=== PATIENT | female | born 1960 | race Caucasian/White ===

== ENCOUNTER 2021-11-09 15:39 | Emergency (ER) | payer OTHER ==
--- NOTE | 2021-11-09 21:41 | EDPHYS ---
Physician Documentation [facility] Name: Christen Hendricks Age: 61 yrs Sex: Female : 1960 Arrival Date: 11/09/2021 Time: 15:43 Bed Waiting Private MD: Fabian Pascual HPI: 11/09 18:00 This 61 yrs old Female presents to ER via Ambulatory with complaints of Abscess. cp 18:00 The patient presents with an abscess of the suprapubic area. Description: pain. cp Historical: - Allergies: 16:07 Clindamycin; vg1 - PMHx: 16:07 Diabetes mellitus; Hypertensive disorder; vg1 - PSHx: 16:07 None; vg1 - Immunization history:: Client reports having NOT received the Covid vaccine. - Social history:: Smoking status: Patient denies any tobacco usage or history of. ROS: 18:02 Constitutional: Negative for body aches, chills, fever, poor PO intake. cp 18:02 Cardiovascular: Negative for chest pain. cp 18:02 Respiratory: Negative for cough, shortness of breath. 18:02 Abdomen/GI: Positive for abdominal pain, of the suprapubic area, Negative for vomiting, diarrhea, constipation. 18:02 : Negative for urinary symptoms. 18:02 Neuro: Negative for altered mental status, dizziness, headache, weakness. 18:02 All other systems are negative. Exam: 18:05 Head/Face: Normocephalic, atraumatic. cp 18:05 Constitutional: The patient appears in no acute distress, alert, awake, non-diaphoretic, non-toxic, well developed, well nourished, obese, uncomfortable. 18:05 Eyes: Periorbital structures: appear normal, Conjunctiva: normal, no exudate, no injection, Lids and lashes: appear normal, bilaterally. 18:05 ENT: External ear(s): are unremarkable, Nose: is normal, Mouth: Lips: moist, Oral mucosa: moist, Posterior pharynx: Airway: no evidence of obstruction, patent. 18:05 Cardiovascular: Rate: tachycardic. 18:05 Respiratory: the patient does not display signs of respiratory distress, Respirations: normal, no use of accessory muscles, no retractions, labored breathing, is not present. 18:05 Abdomen/GI: Exam negative for distension, guarding, Inspection: obese 18:05 Neuro: Orientation: to person, place \T\ time. Mentation: is normal. Vital Signs: 16:03 BP 99 / 57; Pulse 103; Resp 20; Temp 98.7(O); Pulse Ox 99% on R/A; Weight 133.81 kg; vg1 Height 5 ft. 8 in. (172.72 cm); Pain 4/10; 16:03 Body Mass Index 44.85 (133.81 kg, 172.72 cm) vg1 Administered Medications: No medications were administered Disposition Summary: 11/09/21 21:40 Eloped Disposition: before being seen by provider bb Reason: wait time bb Signatures: Debbi Mo RN RN bb Fabian Liu PA PA cp Garcia, Victoria, RN RN vg1
--- NOTE | 2021-11-09 21:41 | ER ---
Nurse's Notes [facility] Name: Christen Hendricks Age: 61 yrs Sex: Female : 1960 Arrival Date: 11/09/2021 Time: 15:43 Bed Waiting Private MD: Diagnosis: Presentation: 11/09 16:03 Chief complaint: Patient states: abscess near suprapubic area that is 'sore and vg1 tender'; states saw a doctor in [place] and was prescribed antibiotics. pt states feels tired and loss of appetite and feeling nauseated. Coronavirus screen: Vaccine status: Patient reports being unvaccinated. Client denies travel out of the [place] in the last 14 days. Ebola Screen: Patient denies exposure to infectious person. Patient denies travel to an Ebola-affected area in the 21 days before illness onset. Initial Sepsis Screen: Does the patient meet any 2 criteria? HR > 90 bpm. Yes Does the patient have a suspected source of infection? No. Patient's initial sepsis screen is negative. Risk Assessment: Do you want to hurt yourself or someone else? Patient reports no desire to harm self or others. Onset of symptoms was November 06, 2021. 16:03 Method Of Arrival: Ambulatory 1 16:03 Acuity: SILVER 3 vg1 Triage Assessment: 16:07 General: Appears uncomfortable, Behavior is cooperative. Pain: Complains of pain in vg1 groin and suprapubic area. Historical: - Allergies: 16:07 Clindamycin; vg1 - PMHx: 16:07 Diabetes mellitus; Hypertensive disorder; vg1 - PSHx: 16:07 None; vg1 - Immunization history:: Client reports having NOT received the Covid vaccine. - Social history:: Smoking status: Patient denies any tobacco usage or history of. Vital Signs: 16:03 BP 99 / 57; Pulse 103; Resp 20; Temp 98.7(O); Pulse Ox 99% on R/A; Weight 133.81 kg; vg1 Height 5 ft. 8 in. (172.72 cm); Pain 4/10; 16:03 Body Mass Index 44.85 (133.81 kg, 172.72 cm) 1 ED Course: 15:43 Patient arrived in ED. [id number] 15:47 Fabian Liu PA is PHCP. cp 15:47 Fabian Vo MD is Attending Physician. cp 16:07 Triage completed. vg1 16:07 Arm band placed on. vg1 21:40 Patient's name was called from ER lobby. No response. Unable to locate patient. Will bb disposition as left without being seen by a provider. Administered Medications: No medications were administered Outcome: 21:40 Patient left the ED. bb Signatures: Debbi Mo RN RN bb Fabian Liu PA PA cp Garcia, Victoria, RN RN vg1 Angelina Rosas [id number]
[2021-11-09 21:55] VITALS: BP 99/57; TEMP 98.7; O2SAT 99
== END 2021-11-09 21:40 | disposition left against medical advice (07) ==
LOC: ER 15:39
DX: Z53.21 Procedure and treatment not carried out due to patient leaving prior to being seen by health care provider (principal)
CPT/HCPCS: 99281